=== PATIENT | female | born 1985 | race Caucasian/White ===

== ENCOUNTER 2016-11-03 08:09 | Emergency (ER) | payer BC ==
[2016-11-03 08:29] VITALS: RESP 16; O2SAT 96
--- NOTE | 2016-11-03 09:09 | UCPHY ---
H & P Time Seen by Provider: 11/03/16 08:28 Patient Type: New HPI/ROS: CHIEF COMPLAINT: Breast pain HPI: The patient is a 30-year-old female with no significant past medical history. She complains of several days of pain to the left lateral breast. She denies discharge from nipple or trauma to that area. She is visiting from out of town. She has no history of breast cancer. She recently had a child that she was . REVIEW OF SYSTEMS: Aside from elements discussed in the HPI, a comprehensive 10-point review of systems was reviewed and is negative. PMH: None significant. SOCIAL HISTORY: . Lives in [place]. FAMILY HISTORY: Reviewed, noncontributory PHYSICAL EXAM: General:Patient is alert, in no acute distress. ENT:Eyes are normal to inspection. ENT inspection normal. Neck: Normal inspection. Full range of motion. Respiratory:No respiratory distress. Breath sounds normal bilaterally. Breast: Normal inspection. Mild tenderness to palpation to the left lateral breast. No mass appreciated. No masses or lymphadenopathy noted in the axilla. Neuro: Oriented x3. Normal motor function. Normal sensory function. Smoking Status: Never smoked Constitutional: Initial Vital Signs Temperature (C) 36.9 C 11/03/16 08:22 Heart Rate 69 11/03/16 08:22 Respiratory Rate 16 11/03/16 08:22 Blood Pressure 128/73 H 11/03/16 08:22 O2 Sat (%) 96 11/03/16 08:22 O2 Delivery Mode Room Air Allergies/Adverse Reactions: No Known Allergies Allergy (Unverified 11/03/16 08:31) Home Medications: Medication Instructions Recorded NK [No Known Home Meds] 11/03/16 MDM/Departure - [facility] ED Course/Re-evaluation: This patient presents with a painful area to the left lateral breast. I feel no obvious mass. I explained to the patient that she would need a mammogram to fully rule out breast mass or cancer. She is comfortable with this plan. See no evidence of abscess. - Depart Disposition: Home, Routine, Self-Care Clinical Impression: Breast pain Condition: Good Instructions: Breast Self Exam for Women (ED) Additional Instructions: Follow-up with your primary doctor within the next week for repeat exam and possible mammogram. Referrals: NONE *PRIMARY CARE P,. [Primary Care Provider] - As per Instructions - PQRS PQRS Measurement: 134: Depression screening and followup, PRIME MD-PHQ2 (12 years and older) Over the last 2 weeks, how often have you been bothered by any of the following problems? 1. Feeling down, depressed, or hopeless? 2. Little interest or pleasure in doing things? Patient answered no to both 1 and 2 130: Documentation of medications. Reviewed all patient medications, doses, route and frequency. 226: Do you smoke? No. 51: 18 years old and older with diagnosis of COPD, spirometry performance. Spirometry not performed; equipment not available. Patient has no history of COPD 52: 18 years old and older with COPD and symptoms of COPD or FEV1<60% predicted prescribed a B Agonist. Spirometry not performed; equipment not available.
[2016-11-03 09:20] VITALS: BP 113/62; PULSE 63; TEMP 97.7
== END 2016-11-03 09:18 | disposition home or self-care (01) ==
LOC: CED 08:09
DX: N64.4 Mastodynia (principal)
CPT/HCPCS: 99204-PO; G0463-PO